=== PATIENT | male | born 1955 | race Caucasian/White ===

== ENCOUNTER 2017-02-28 05:46 | Inpatient (IN) | payer MEDICARE, MEDICAID ==
[2017-02-28] MEDS ORDERED: PLAVIX75 M1 PO (06:00)
[2017-02-28] MEDS ORDERED: TYLENOL325 M2 PO (06:01)
[2017-02-28] MEDS ORDERED: PRINIVIL5 M1 PO (06:02)
[2017-02-28] MEDS ORDERED: BISOPROLOL FUMA10 M1 PO (06:02)
[2017-02-28] MEDS ORDERED: ACTOS30 M1 PO (06:03)
[2017-02-28] MEDS ORDERED: NITROSTAT0.4 M1 SL (06:03)
[2017-02-28] MEDS ORDERED: SERTRALINE HCL100 M5 PO (06:05)
[2017-02-28] MEDS ORDERED: PROAIR HFA8.5 GM INH (06:05)
[2017-02-28] MEDS ORDERED: ZOCOR80 M1 PO (06:06)
[2017-03-01 05:39] LABS: BASO % 0.8 % (0-2); BASO ABSOLUTE COUNT 0.1 tho/cmm (0.0-0.2); EOS % 3.1 % (0-7); EOSINOPHIL ABSOLUTE COUNT 0.3 tho/cmm (0.0-0.7); HCT-HEMATOCRIT 41.4 % (36.0-53.5); HGB-HEMOGLOBIN 13.5 gm/dl (13.5-17.0); IMMATURE GRANULOCYTES ABSOLUTE 0.03 tho/cmm (0-0.03); IMMATURE GRANULOCYTES PERCENT 0.3 % (0-0.3); LYMPH % 20.3 % (20-45); MCH (MEAN CORPUSCULAR HGB) 28.5 pg (28.0-32.0); MCHC MEAN CORPUSCULAR HGB CONC 32.6 % (32.0-36.0); MCV (MEAN CELL VOLUME) 87.5 fl (82.0-96.0); MEAN PLATELET VOLUME 11.1 cmc (9.4-12.4); MONO % 8.1 % (0-12); MONOCYTE ABSOLUTE COUNT 0.8 tho/cmm (0.0-1.2); NEUTROPHIL ABSOLUTE COUNT 6.5 tho/cmm (1.6-8.0); NEUTROPHIL-AUTOMATED 6.5 tho/cmm (1.6-8.0); NEUTROPHILS % 67.4 % (40-80); PLATELET COUNT 156 tho/cmm (150-450); RED BLOOD COUNT 4.73 mil/cmm (4.40-5.70); RED CELL DISTRIBUTION WIDTH 12.8 % (12.4-16.4); WHITE BLOOD COUNT 9.6 tho/cmm (4.0-10.0)
[2017-03-01 05:50] LABS: ANION GAP 10 mmol/L (0-20); BLOOD UREA NITROGEN 13 mg/dl (6-24); CALCIUM 8.5 mg/dl (8.5-10.5); CARBON DIOXIDE-VENOUS 31 mmol/L (22-32); CHLORIDE 99 mmol/l (96-110); GLUCOSE 283 mg/dL (70-110); POTASSIUM 3.7 mmol/L (3.7-5.1); SODIUM 136 mmol/L (135-145); eGFR VALUE FOR BLACK >90 mL/Min
[2017-03-02 04:30] LABS: INR 1.2 INR (0.9-1.1); PROTHROMBIN TIME 14.3 SECONDS (9.0-13.6)
[2017-03-02 04:38] LABS: ANION GAP 10 mmol/L (0-20); BLOOD UREA NITROGEN 16 mg/dl (6-24); CALCIUM 8.3 mg/dl (8.5-10.5); CARBON DIOXIDE-VENOUS 30 mmol/L (22-32); CHLORIDE 101 mmol/l (96-110); POTASSIUM 3.6 mmol/L (3.7-5.1); SODIUM 137 mmol/L (135-145); eGFR VALUE FOR BLACK >90 mL/Min
[2017-03-02 04:39] LABS: GLUCOSE 128 mg/dL (70-110)
[2017-03-02 10:31] LABS: ALB/GLOB RATIO 0.4 (0.8-2.0); ALKALINE PHOSPHATASE 230 U/L (33-138); ALT/SGPT 26 U/L (12-78); AST/SGOT 32 U/L (10-40); BILIRUBIN,DIRECT <0.1 mg/dl (0.0-0.3); BILIRUBIN,INDIRECT 0.1 mg/dL (0.0-1.0); BILIRUBIN,TOTAL 0.2 mg/dl (0.0-1.5)
[2017-03-03 04:37] LABS: HGB-HEMOGLOBIN 13.4 gm/dl (13.5-17.0); PLATELET COUNT 159 tho/cmm (150-450)
[2017-03-03 04:59] LABS: INR 1.2 INR (0.9-1.1); PROTHROMBIN TIME 13.6 SECONDS (9.0-13.6)
[2017-03-04 05:12] LABS: BASO % 0.7 % (0-2); BASO ABSOLUTE COUNT 0.1 tho/cmm (0.0-0.2); EOS % 4.3 % (0-7); EOSINOPHIL ABSOLUTE COUNT 0.4 tho/cmm (0.0-0.7); HCT-HEMATOCRIT 41.3 % (36.0-53.5); HGB-HEMOGLOBIN 13.6 gm/dl (13.5-17.0); IMMATURE GRANULOCYTES ABSOLUTE 0.05 tho/cmm (0-0.03); IMMATURE GRANULOCYTES PERCENT 0.5 % (0-0.3); LYMPH % 21.8 % (20-45); LYMPH ABSOLUTE COUNT 2.1 tho/cmm (0.8-4.5); MCH (MEAN CORPUSCULAR HGB) 28.9 pg (28.0-32.0); MCHC MEAN CORPUSCULAR HGB CONC 32.9 % (32.0-36.0); MCV (MEAN CELL VOLUME) 87.7 fl (82.0-96.0); MEAN PLATELET VOLUME 10.9 cmc (9.4-12.4); MONO % 8.4 % (0-12); MONOCYTE ABSOLUTE COUNT 0.8 tho/cmm (0.0-1.2); NEUTROPHIL ABSOLUTE COUNT 6.3 tho/cmm (1.6-8.0); NEUTROPHIL-AUTOMATED 6.3 tho/cmm (1.6-8.0); NEUTROPHILS % 64.3 % (40-80); PLATELET COUNT 143 tho/cmm (150-450); RED BLOOD COUNT 4.71 mil/cmm (4.40-5.70); RED CELL DISTRIBUTION WIDTH 13.3 % (12.4-16.4); WHITE BLOOD COUNT 9.8 tho/cmm (4.0-10.0)
[2017-03-04 05:17] LABS: INR 1.2 INR (0.9-1.1); PROTHROMBIN TIME 13.8 SECONDS (9.0-13.6)
[2017-03-04 05:36] LABS: BLOOD UREA NITROGEN 12 mg/dl (6-24); CALCIUM 8.7 mg/dl (8.5-10.5); CARBON DIOXIDE-VENOUS 28 mmol/L (22-32); CHLORIDE 100 mmol/l (96-110); CREATININE 0.57 mg/dl (0.60-1.30); GLUCOSE 175 mg/dL (70-110); SODIUM 135 mmol/L (135-145); eGFR VALUE FOR BLACK >90 mL/Min
[2017-03-04 05:40] LABS: ANION GAP 12 mmol/L (0-20); POTASSIUM 4.6 mmol/L (3.7-5.1)
[2017-03-04] MEDS ORDERED: LEVEMIR100 UNITS/ SC (14:25)
== END 2017-03-04 15:05 | DRG 436 ==
LOC: 5WE 05:46
PROVIDERS: Internal Medicine; Internal Medicine Cardiovascular Disease; Radiology Diagnostic Radiology; Registered Nurse; ADMIT Internal Medicine
PROC: 0FB23ZX Excision of Left Lobe Liver, Percutaneous Approach, Diagnostic (ICD-10-PCS; principal; 2017-03-04)
DX: C78.7 Secondary malignant neoplasm of liver and intrahepatic bile duct (principal); C79.70 Secondary malignant neoplasm of unspecified adrenal gland; I69.351 Hemiplegia and hemiparesis following cerebral infarction affecting right dominant side; E87.1 Hypo-osmolality and hyponatremia; Z79.4 Long term (current) use of insulin; I25.10 Atherosclerotic heart disease of native coronary artery without angina pectoris; Z95.5 Presence of coronary angioplasty implant and graft; Z85.118 Personal history of other malignant neoplasm of bronchus and lung; F17.210 Nicotine dependence, cigarettes, uncomplicated; F41.9 Anxiety disorder, unspecified; I10 Essential (primary) hypertension; G93.9 Disorder of brain, unspecified; Z79.02 Long term (current) use of antithrombotics/antiplatelets; Z51.5 Encounter for palliative care; Z92.3 Personal history of irradiation; Z92.21 Personal history of antineoplastic chemotherapy; I25.2 Old myocardial infarction; Z88.8 Allergy status to other drugs, medicaments and biological substances; E11.65 Type 2 diabetes mellitus with hyperglycemia; R41.0 Disorientation, unspecified; E87.6 Hypokalemia; E78.5 Hyperlipidemia, unspecified; Z91.81 History of falling; N28.89 Other specified disorders of kidney and ureter
CPT/HCPCS: A9577; C9113; G8978-GP-CI; G8979-GP-CJ; J1650; J1815; J2250; J2405; J3010; J7030